=== PATIENT | male | born 1950 | race Caucasian/White ===

== ENCOUNTER → 2016-04-24 | Outpatient (CLI) | payer MEDICARE, OTHER ==
[~2016-04-24] MED LIST: ALBUTEROL MININEB NEB; ALBUTEROL0.83 MG/ML IH; ALBUTEROL17 GM INH; AMLODIPINE BESY10 MG PO; AMLODIPINE BESYL5 MG PO; AMOXICILLIN500 M1 PO; AMOXICILLIN875 MG PO; COLACE PO; DULERA 200 MCG/13 GM IH; DULERA 200 MCG/13 GM INH; DUONEB 2.5-0.5 M3 ML NEB; GLUCOPHAGE500 MG PO; KEFLEX PO; LEVAQUIN PO; LEVEMIR; LEVEMIR100 U/ML SUBQ; NASONEX17 GM IH; NEXIUM PO; NORVASC10 MG PO; PHENERGAN/CODEIN5 ML PO; PRAVACHOL20 MG PO; PREDNISONE PO; PREDNISONE10 MG PO; SINGULAIR PO; SPIRIVA18 MCG INH; SYMBICORT INH; TYLENOL325 M1 PO; VENTOLIN5 MG/ML IH; XOLAIR150 MG/1.2 SUBQ
== END | disposition home or self-care (01) ==
LOC: CSSDAY 08:32
DX: J45.50 Severe persistent asthma, uncomplicated (principal); Z79.899 Other long term (current) drug therapy
CPT/HCPCS: J2357

== ENCOUNTER → 2016-05-22 | Outpatient (CLI) | payer MEDICARE, OTHER | END | disposition home or self-care (01) | LOC: CSSDAY 08:35 | DX: J45.50 Severe persistent asthma, uncomplicated (principal) | CPT/HCPCS: J2357 ==

== ENCOUNTER 2016-06-04 05:40 | Emergency (ER) | payer MEDICARE, OTHER ==
--- NOTE | ~2016-06-04 | EKG ---
PATIENT: KESHAWN MCKAY UNIT #: [id number] Ventricular Rate: 84 BPM Atrial Rate: 84 BPM P-R Interval: 150 ms QRS Duration: 94 ms Q-T Interval: 384 ms QTC Calculation(Bezet): 453 ms P [place]: 85 degrees Calculated R [place]: -69 degrees Calculated T [place]: 71 degrees Diagnosis Line: Normal sinus rhythm Diagnosis Line: Left axis deviation Diagnosis Line: Pulmonary disease pattern Diagnosis Line: Abnormal ECG Diagnosis Line: No previous ECGs available Diagnosis Line: Confirmed by XAVI XAVIER MD ([id number]) on 06/05/2016 Diagnosis Line: 5:34:18 AM INTERPRETING MD: MORENITA DECKER
--- NOTE | ~2016-06-04 | CR72 ---
[facility] A Service of [facility] RADIOLOGY TEXT RESULTS PATIENT: KESHAWN MCKAY LOCATION: [facility] : 48 UNIT #: [id number] AGE: [address]: Gadiel Goddard MD SEX: M ORDER DR: [id number] [facility] [address] [place], [place] [address] [id number] E MR#: [id number] Acc #: [id number] NAME: KESHAWN MCKAY : 1950 SEX: M STUDY DATE/TIME: 06/04/2016 5:30 UNIT: [facility] ROOM: STUDY DESCRIPTION: CR Chest Single View Portable Attending Physician: Gadiel Goddard M.D. Ordering Physician: Pawan Perkins M.D. Primary Care Physician: Lenin Gaytan M.D. MEDICAL IMAGING REPORT This report is preliminary unless electronic signature is present EXAM Portable chest, 06/04 COMPARISON 04/26/2016 HISTORY Shortness of air beginning this morning. FINDINGS A portable view of the chest was obtained. The heart size and vascularity are normal and the lungs are clear. The bones are normal. IMPRESSION No active disease. Dictated by... Cameron Riojas M.D. THIS IS AN ELECTRONICALLY VERIFIED REPORT Cameron Riojas M.D. at 06/04/2016 1:24 PM Nicolas TD: 06/04/2016 09:41 JOB #: [id number] MEDICAL IMAGING REPORT Page 1 of 1 COPY
[2016-06-04 05:36] LABS: POC - CKMB 2.1 ng/mL (0.0-7.9); POC - TROPONIN <0.05 ng/mL (<=0.05)
[~2016-06-04 05:40] MED LIST changes: -AMLODIPINE BESY10 MG PO; -GLUCOPHAGE500 MG PO; -PRAVACHOL20 MG PO; -XOLAIR150 MG/1.2 SUBQ
[2016-06-04 06:03] LABS: BASOPHIL# 0.1 X10e3 (0-0.3); BASOPHIL% 1.1 % (0-2.5); EOSINOPHIL# 0.8 X10e3 (0-0.7); EOSINOPHIL% 10.5 % (0.0-7.0); HEMATOCRIT 46.3 % (38.0-50.0); HEMOGLOBIN 15.2 gm/dL (13.0-16.0); LYMPHOCYTE# 1.3 X10e3 (1.0-3.5); LYMPHOCYTE% 16.5 % (17.0-45.0); MEAN CELL VOLUME 86.4 FL (83-96); MEAN CORPUSCULAR HEMOGLOBIN 28.4 PG (28-34); MEAN CORPUSCULAR HGB CONC 32.9 g/dL (30-36); MEAN PLATELET VOLUME 8.7 FL (6.5-11.5); MONOCYTE# 0.8 X10e3 (0-1.0); MONOCYTE% 9.4 % (3.0-12.0); NEUTROPHIL% 62.5 % (40-75); PLATELET COUNT 185 X10e3 (140-420); RED BLOOD COUNT 5.35 X10e (3.90-5.60); RED CELL DISTRIBUTION WIDTH 13.8 % (11.0-15.5)
[2016-06-04 06:05] LABS: DIFF IND NO
[2016-06-04 06:35] LABS: ALBUMIN SERUM 4.4 g/dL (3.5-5.0); BILIRUBIN, DIRECT 0.1 mg/dL (0.0-0.2); BILIRUBIN,INDIRECT 0.5 mg/dL (0.0-0.9); BILIRUBIN,TOTAL 0.6 mg/dL (0.2-2.0); BUN/CREATININE RATIO 18.57; CALCIUM SERUM 8.9 mg/dL (8.4-10.2); CREATININE SERUM 0.7 mg/dL (0.6-1.4); GLOM FILT RATE Estimated 98.4 mL/min (>60); POTASSIUM 3.7 mmol/L (3.5-5.1); PROTEIN TOTAL SERUM 7.3 g/dL (6.0-8.3)
[2016-06-04 07:04] LABS: POC - TROPONIN <0.05 ng/mL (<=0.05)
[2016-10-09] MEDS ORDERED: SYMBICORT INH (08:45)
[2016-10-09] MEDS ORDERED: AMLODIPINE BESY10 MG PO (08:48)
[2016-10-09] MEDS ORDERED: XOLAIR150 MG/1.2 SUBQ (08:59)
[2016-10-09] MEDS ORDERED: PRAVACHOL20 MG PO (10:33)
[2016-10-09] MEDS ORDERED: ALBUTEROL17 GM INH (10:33)
[2016-10-09] MEDS ORDERED: GLUCOPHAGE500 MG PO (15:13)
== END 2016-06-04 10:20 | disposition home or self-care (01) ==
LOC: CED 05:40
PROVIDERS: Emergency Medicine
DX: J44.1 Chronic obstructive pulmonary disease with (acute) exacerbation (principal); E11.9 Type 2 diabetes mellitus without complications; I10 Essential (primary) hypertension; Z79.899 Other long term (current) drug therapy
CPT/HCPCS: 36415; 71010; 80048; 80076; 82553; 82947; 84484; 85025; 87040; 93005; 94640; 99284; J2930

== ENCOUNTER → 2016-06-19 | Outpatient (CLI) | payer MEDICARE, OTHER ==
[~2016-06-19] MED LIST changes: +AMLODIPINE BESY10 MG PO; +GLUCOPHAGE500 MG PO; +PRAVACHOL20 MG PO; +XOLAIR150 MG/1.2 SUBQ
== END | disposition home or self-care (01) ==
LOC: CSSDAY 08:29
DX: J45.50 Severe persistent asthma, uncomplicated (principal); Z79.899 Other long term (current) drug therapy
CPT/HCPCS: J2357

== ENCOUNTER → 2016-07-17 | Outpatient (CLI) | payer MEDICARE, OTHER | END | disposition home or self-care (01) | LOC: CSSDAY 07:50 | DX: J45.50 Severe persistent asthma, uncomplicated (principal) | CPT/HCPCS: J2357 ==

== ENCOUNTER → 2016-08-14 | Outpatient (CLI) | payer MEDICARE, OTHER | END | disposition home or self-care (01) | LOC: CSSDAY 08:27 | DX: J45.50 Severe persistent asthma, uncomplicated (principal); Z79.899 Other long term (current) drug therapy | CPT/HCPCS: J2357 ==

== ENCOUNTER → 2016-09-11 | Outpatient (CLI) | payer MEDICARE, OTHER | END | disposition home or self-care (01) | LOC: CSSDAY 07:15 | DX: J45.50 Severe persistent asthma, uncomplicated (principal); Z79.899 Other long term (current) drug therapy | CPT/HCPCS: 96372; J2357 ==

== ENCOUNTER → 2016-10-09 | Outpatient (CLI) | payer MEDICARE, OTHER | END | disposition home or self-care (01) | LOC: CSSDAY 09:00 | DX: J45.50 Severe persistent asthma, uncomplicated (principal) | CPT/HCPCS: J2357 ==

== ENCOUNTER → 2016-11-06 | Outpatient (CLI) | payer MEDICARE, OTHER | END | disposition home or self-care (01) | LOC: CSSDAY 08:34 | DX: J45.50 Severe persistent asthma, uncomplicated (principal) | CPT/HCPCS: 96372; J2357 ==